=== PATIENT | male | born 1980 | race Caucasian/White ===

== ENCOUNTER 2022-09-11 14:20 | Emergency (ER) | payer SELFPAY ==
[2022-09-11 15:02] VITALS: BP 138/65; PULSE 71; RESP 20; TEMP 37.2; O2SAT 99; BMI 22.4
--- NOTE | 2022-09-11 16:38 | ED_ITS ---
HPI - General Adult General Time Seen by Provider: 16:38 Date Seen: 09/11/22 Chief complaint: Hip Injury/Pain Stated complaint: RT hip/leg nerve pain Time Seen by Provider: 09/11/22 16:38 Source: patient and RN notes reviewed Mode of arrival: ambulatory Limitations: no limitations History of Present Illness HPI narrative: Lucio is a very pleasant 42-year-old gentleman previously healthy who notes 1 year of intermittent right buttock and hip pain. He states this seems to be related to prolonged sitting. He notes that the pain is worse when he 1st gets up in the morning but as he gradually moves it dissipates in by the end of the day he is feeling pretty well. Went to urgent care today but was told there was a 2 are weight and thus he came to the emergency room. Occasionally the pain does radiate into the back of his thigh but never past the knee. He denies any weakness of his right lower extremity. He cannot recall any specific injury. He states that it is worse it is a 10/10 and then sometimes a 7/10. He denies any back pain. He notes no weakness in the lower extremity to include tripping. Related Data Home Medications Medication Instructions Recorded Confirmed No Known Home Medications 09/11/22 09/11/22 Allergies Allergy/AdvReac Type Severity Reaction Status Date / Time cefaclor [From Ceclor] Allergy Verified 09/11/22 15:07 sulfamethoxazole Allergy Verified 09/11/22 15:07 [From Bactrim] trimethoprim [From Bactrim] Allergy Verified 09/11/22 15:07 Review of Systems Narrative: Patient denies fever, unusual weight loss, weakness of the leg, tripping, back pain. [facility] Social History Smoking Status: Current every day smoker What tobacco products do you use: cigarettes Smoking packs per day: 0.5 Smoking cigarettes per day: 10.0 Do you use any of these nicotine containing products: None and E-Cigarettes Second hand tobacco smoke exposure: No How often do you have a drink containing alcohol: monthly or less How often do you have six or more drinks on one occasion: Never AUDIT-C Alcohol total score: 1 Non-prescribed substance use: marijuana (any form) Exam Narrative: Exam Narrative: Patient is alert and oriented. Not in any acute distress. Respirations easy. Palpation down thoracic and lumbar spine without pain. Palpation in the right buttock is painful. This is superior to the sciatic notch. Palpation over the right greater trochanter without any discomfort. Lower extremity strength and motor fully intact. Const: Vital Signs, click to edit/add: Vital Signs - 24 hr 09/11/22 15:02 Temperature 98.9 F Pulse Rate [Pulse Oximeter] 71 Respiratory Rate 20 Blood Pressure [Le ft Upper Arm] 138/65 Pulse Oximetry 99 Oxygen Delivery Me thod Room Air Documenting provider has reviewed patient's vital signs: yes Course Course Hospital Course: At this time will obtain hip x-ray. Suspect this is muscular given the point tenderness and improvement of symptoms throughout the day. Reevaluation(s) Reevaluation #1: Patient waiting extended time due to high volume in the ED. Patient moved to the baum. Vital Signs Vital signs: Initial Vital Signs Temperature 98.9 F 09/11/22 15:02 Temperature Source Temporal Artery Scan 09/11/22 15:02 Pulse Rate 71 09/11/22 15:02 Respiratory Rate 20 09/11/22 15:02 Blood Pressure 138/65 09/11/22 15:02 Blood Pressure Mean 89 09/11/22 15:02 Blood Pressure Position Sitting 09/11/22 15:02 Pulse Oximetry 99 09/11/22 15:02 Oxygen Delivery Method 09/11/22 15:02 Vital Signs Temperature 98.9 F 09/11/22 15:02 Pulse Rate 71 09/11/22 15:02 Respiratory Rate 20 09/11/22 15:02 Blood Pressure 138/65 09/11/22 15:02 Pulse Oximetry 99 09/11/22 15:02 Oxygen Delivery Method 09/11/22 15:02 Temperature 98.9 F 09/11/22 15:02 Pulse Rate 71 09/11/22 15:02 Respiratory Rate 20 09/11/22 15:02 Blood Pressure 138/65 09/11/22 15:02 Pulse Oximetry 99 09/11/22 15:02 Oxygen Delivery Method 09/11/22 15:02 Medical Decision Making MDM Narrative Medical decision making narrative: 1. Right buttock pain-piriformis stretches should help this along with some anti-inflammatories. These are demonstrated to the patient. He should be doing these twice daily and as needed. If Patient is not improving would have him follow-up with physical therapy. In referral for this was given to him. Recommend icing and Aleve 2 tablets b.i.d. as needed. Take with food. 2. Disposition-home at this time. Patient had been waiting a long time for x- rays and wish to go. Verbal discharge given to patient any felt comfortable leaving without written paperwork. Medical Records Medical records reviewed: Yes I reviewed the patient's medical records Imaging Data Right hip: Attestation: I have reviewed the pertinent imaging results. My impression: No acute fractures Radiologist's impression: There is no evidence of acute fracture or right hip dislocation. The hip joint spaces and sacroiliac joints appear normal. No suspicious osseous lesion. The visualized soft tissues are unremarkable. IMPRESSION: Normal radiographs of the pelvis and right hip. Discharge Plan Discharge Clinical Impression: Pain in right buttock Patient Disposition: Home, Self-Care Condition: Unchanged Additional Instructions: Suggest Aleve 2 tablets twice a day with food for pain relief. As the pain gets better with stretching you can discontinue that medicine. Piriformis stretches on both sides are important and I think will help her pain. If it does not improve recommend physical therapy. He will need to follow up with a clinic physician in order to get the referral. Ice to the area of discomfort. Seek medical attention for worsening symptoms. Prescriptions: No Action No Known Home Medications Stand Alone Forms: [employer] Info Instructions
--- NOTE | 2022-09-11 16:45 | CRLHL7_ITS ---
For Patients: As a result of the Cures Act, medical imaging exams and procedure reports are released immediately into your electronic medical record. You may view this report before your referring provider. If you have questions, please contact your health care provider. INDICATION: Right hip and pelvis pain. TECHNIQUE: AP view of the pelvis and 2 views of the right hip. COMPARISON: None. FINDINGS: There is no evidence of acute fracture or right hip dislocation. The hip joint spaces and sacroiliac joints appear normal. No suspicious osseous lesion. The visualized soft tissues are unremarkable. IMPRESSION: Normal radiographs of the pelvis and right hip. Dictated by Yaima Giles MD @ 09/11/2022 6:16:36 PM (Electronically Signed)
== END 2022-09-11 17:55 | disposition home or self-care (01) ==
PROVIDERS: Emergency Provider Family Medicine
DX: M76.01 Gluteal tendinitis, right hip (principal)
CPT/HCPCS: 73502; 99283